=== PATIENT | male | born 1965 | race Two or more races ===

== ENCOUNTER 2020-11-02 09:01 | Outpatient (CLI) | payer OTHER | END 2020-11-02 09:41 | disposition home or self-care (01) | LOC: OFIC 805 09:01 | PROVIDERS: ATTEND Otolaryngology Otology & Neurotology | DX: Q18.1 Preauricular sinus and cyst (principal); H92.01 Otalgia, right ear ==

== ENCOUNTER 2020-11-12 15:38 | Outpatient (CLI) | payer OTHER | END 2020-11-12 17:33 | disposition home or self-care (01) | LOC: OFIC 805 15:38 | PROVIDERS: ATTEND Otolaryngology Otology & Neurotology | DX: Q18.1 Preauricular sinus and cyst (principal); H92.01 Otalgia, right ear ==

== ENCOUNTER → 2020-11-14 | Outpatient (CLI) | payer OTHER | END | disposition home or self-care (01) | LOC: OFIC 805 14:10 | PROVIDERS: ATTEND Otolaryngology Otology & Neurotology | DX: Q18.1 Preauricular sinus and cyst (principal); H92.01 Otalgia, right ear ==

== ENCOUNTER 2020-11-17 09:43 | Outpatient (CLI) | payer OTHER ==
[2020-12-10] MEDS ORDERED: LIPITOR20 MG PO (14:11)
[2020-12-10] MEDS ORDERED: METFORMIN HCL500 M3 PO (14:11)
[2020-12-10] MEDS ORDERED: NORVASC5 MG PO (14:12)
[2020-12-10] MEDS ORDERED: COZAAR100 MG PO (14:12)
[2020-12-10] MEDS ORDERED: HYDRALAZINE HCL25 MG PO (14:12)
[2020-12-10] MEDS ORDERED: SPIRIVA RESPIMAT4 G1 IH (14:13)
[2020-12-10] MEDS ORDERED: SYMBICORT 16010.2 GM IH (14:13)
== END 2020-11-17 10:38 | disposition home or self-care (01) ==
LOC: OFIC 805 09:43
PROVIDERS: ATTEND Otolaryngology Otology & Neurotology
DX: Q18.1 Preauricular sinus and cyst (principal); H92.01 Otalgia, right ear

== ENCOUNTER 2020-11-17 10:53 | Outpatient (CLI) | payer OTHER | END 2020-11-17 11:01 | disposition home or self-care (01) | LOC: LAB 10:53 | PROVIDERS: ATTEND Otolaryngology Otology & Neurotology | DX: Q18.1 Preauricular sinus and cyst (principal) ==

== ENCOUNTER 2020-11-26 09:16 | Outpatient (CLI) | payer OTHER ==
[2020-12-10] MEDS ORDERED: METFORMIN HCL500 M3 PO (14:11)
[2020-12-10] MEDS ORDERED: LIPITOR20 MG PO (14:11)
[2020-12-10] MEDS ORDERED: NORVASC5 MG PO (14:12)
[2020-12-10] MEDS ORDERED: COZAAR100 MG PO (14:12)
[2020-12-10] MEDS ORDERED: HYDRALAZINE HCL25 MG PO (14:12)
[2020-12-10] MEDS ORDERED: SYMBICORT 16010.2 GM IH (14:13)
[2020-12-10] MEDS ORDERED: SPIRIVA RESPIMAT4 G1 IH (14:13)
== END 2020-11-26 09:31 | disposition home or self-care (01) ==
LOC: TOM 09:16
PROVIDERS: ATTEND Otolaryngology Otology & Neurotology
DX: Q18.1 Preauricular sinus and cyst (principal)

== ENCOUNTER 2020-12-14 08:42 | Day surgery (SDC) | payer OTHER ==
[~2020-12-14 08:42] MED LIST: COZAAR100 MG PO; HYDRALAZINE HCL25 MG PO; LIPITOR20 MG PO; METFORMIN HCL500 M3 PO; NORVASC5 MG PO; SPIRIVA RESPIMAT4 G1 IH; SYMBICORT 16010.2 GM IH
[2020-12-14] MEDS ORDERED: CLEOCIN HCL300 MG PO (14:19)
== END 2020-12-14 17:25 | disposition home or self-care (01) ==
LOC: CIR.AMB 08:42
PROVIDERS: ATTEND Otolaryngology Otology & Neurotology
DX: L72.0 Epidermal cyst (principal); Z20.822 Contact with and (suspected) exposure to COVID-19

== ENCOUNTER 2020-12-18 15:01 | Outpatient (CLI) | payer OTHER ==
[~2020-12-18 15:01] MED LIST changes: +CLEOCIN HCL300 MG PO
== END 2020-12-18 15:27 | disposition home or self-care (01) ==
LOC: OFIC 805 15:01
PROVIDERS: ATTEND Otolaryngology Otology & Neurotology
DX: Q18.1 Preauricular sinus and cyst (principal); H92.01 Otalgia, right ear

== ENCOUNTER 2020-12-26 08:48 | Outpatient (CLI) | payer OTHER | END 2020-12-26 09:39 | disposition home or self-care (01) | LOC: OFIC 805 08:48 | PROVIDERS: ATTEND Otolaryngology Otology & Neurotology | DX: Q18.1 Preauricular sinus and cyst (principal); H92.01 Otalgia, right ear ==